=== PATIENT | male | born 1940 | race Caucasian/White ===

== ENCOUNTER 2017-02-13 12:54 | Observation (INO) | payer MEDICARE, MEDICAID ==
[2017-02-13] VITALS (9 sets, daily range): BP systolic 108–179; BP diastolic 63–96; PULSE 60–77; RESP 17–20; TEMP 97.3–98; O2SAT 95–99
[~2017-02-13] VITALS: Ht 182.9 cm; Wt 100.0 kg
[~2017-02-13 12:54] MED LIST: ASPI1TAB69 PO; ATOR20TA15 PO; BETH25TA2 PO; CLOP75TA PO; DORZ2SOL EACH EYE; FURO40TA PO; METO50TA PO; MULT1TAB84 PO; NITR0.4S SL; OMEP40CA2 PO; RANO500 PO; SYMB160A INH; TAMS0.4C4 PO; TIOT12.9 INH
[2017-02-13] MEDS ORDERED: SODIUM CHLORIDE 0.9% FLUSH 10 ML FLUSH IVF PRN (13:15)
[2017-02-13] MEDS ORDERED: ONDANSETRON HCL 4 MG/2 ML VIAL IV ONE (13:15)
[2017-02-13] MEDS ORDERED: LYRI50CA PO (13:17)
[2017-02-13] MEDS ORDERED: CLON0.2T PO (13:17)
--- NOTE | 2017-02-13 13:18 | PD ---
HPI Chief Complaint: Cardiac Complaint Time Seen by Provider: 13:03 Travel History International Travel<30 days: No Contact w/Intl Traveler<30days: No Traveled to known affect area: No History of Present Illness HPI This patient complains of chest pain. Location is [place]. Started late yesterday evening. Has waxed and waned throughout the night. Today he still hurting and so came in. Severity is moderate. No alleviating factors. No fever or shortness of breath or cough. Has history of cardiac stent. He took 3 sublingual nitros a couple hours ago. Patient had a stress test here at this hospital 8 months ago. PFSH Past Medical History Hx Anticoagulant Therapy: Yes (81 MG ASA ) Asthma: No Blood Disorders: No Anxiety: No Depression: No Heart Rhythm Problems: Yes Cancer: No Cardiac Catheterization: Yes Cardiovascular Problems: Yes (Pacemaker) High Cholesterol: Yes Chemotherapy: No Chest Pain: Yes Congestive Heart Failure: No COPD: Yes Cerebrovascular Accident: No Diabetes: No Diminished Hearing: No Endocrine: No GERD: Yes Glaucoma: No Genitourinary: Yes (PROSTATE INFECTION, YRS AGO HAD TURP) Headaches: Yes Hepatitis: No Hiatal Hernia: No Hypertension: Yes Immune Disorder: No Implanted Vascular Access Dvce: Yes Musculoskeletal: No Neurologic: Yes (ENVIRONMENTAL NEUROPATHY) Psychiatric: No Reproductive: Yes (LOW HORMONE LEVEL) Respiratory: Yes (COPD) Integumentary: No Pneumonia: Yes Sleep Apnea: Yes (HAS CPAP MACHINE) Thyroid Disease: No Past Surgical History Abdominal Surgery: Yes AICD: No Body Medical Devices: PACER Cardiac Surgery: Yes ([employer] PACEMAKER LEFT SIDE) Cholecystectomy: Yes Coronary Artery Bypass Graft: No Coronary Stent: Yes (2012) Eye Surgery: Yes (L EYE) Hysterectomy: Yes Joint Replacement: No Pacemaker: Yes Tonsillectomy: Yes Other Surgery: Yes (LEFT EYE LASER, LOGAN, CARDIAC STENT, PACER, PILONIDAL CYST ) Family History Family Myocardial Infarction: Yes Social History Alcohol Use: No Tobacco Use: No Substance Use: No Allergies-Medications (Allergen,Severity, Reaction): Coded Allergies: Contrast Media (Verified Allergy, Severe, TEMPERATURE RISE 103-104, ) Lactose (Verified Allergy, Intermediate, GI SX'S, 02/13/17) Citric Acid (Verified Adverse Reaction, Intermediate, STOMACH CRAMPS, DIARRHEA, 02/13/17) Codeine (Verified Adverse Reaction, Intermediate, GERD, STOMACH ACHE, 02/13) Uncoded Allergies: NA BENZOATE (Allergy, Intermediate, DIARRHEA, ABDOMINAL PAIN, 03/13/13) FOOD PRESERVATIVES (Adverse Reaction, Intermediate, DIARRHEA, ABD. PAIN, 03/12/13) Reported Meds & Prescriptions Reported Meds & Active Scripts Active Reported Lyrica (Pregabalin) 50 Mg Cap 50 Mg PO TID Clonidine (Clonidine HCl) 0.2 Mg Tab 0.2 Mg PO BID Dorzolamide Opth Drops (Dorzolamide HCl) 2% Soln 1 Drop EACH EYE TID Symbicort Inh (Budesonide/Formoterol Fumarate) 160-4.5 Mcg/Act Aero 2 Puff INH Q12HR Spiriva Respimat Inh (Tiotropium Inh) 2.5 Mcg/Act Aero 2 Puff INH DAILY 2.5 mcg = 1 inhalation Metoprolol Tartrate 50 Mg Tab 50 Mg PO BID Furosemide 40 Mg Tab 20 Mg PO DAILY Clopidogrel (Clopidogrel Bisulfate) 75 Mg Tab 75 Mg PO DAILY Nitrostat SL (Nitroglycerin) 0.4 Mg Subl 0.4 Mg SL DIRECTED PRN ONE TABLET UNDER THE TONGUE NEEDED FOR CHEST PAIN, MAY REPEAT EVERY FIVE MINUTES FOR A TOTAL OF 3 DOSES OR CALL 911 IF NO RELIEF Atorvastatin (Atorvastatin Calcium) 20 Mg Tab 40 Mg PO HS Aspirin 81 Mg Tabdr 81 Mg PO DAILY Review of Systems General / Constitutional: No: Fever Eyes: No: Visual changes HENT: Positive: Lightheadedness, No: Headaches Cardiovascular: Positive: Chest Pain or Discomfort Respiratory: No: Shortness of Breath Gastrointestinal: No: Abdominal Pain Genitourinary: No: Dysuria Musculoskeletal: No: Pain Skin: No Rash Neurologic: No: Weakness Psychiatric: No: Depression Endocrine: No: Polydipsia Hematologic/Lymphatic: No: Easy Bruising Physical Exam Narrative GENERAL: Well-nourished, well-developed patient in no apparent distress. SKIN: Focused skin assessment reveals no rash and nodules. Skin is Warm and dry. HEAD: Atraumatic. Normocephalic. EYES: Pupils equal and round. No scleral icterus. No injection or drainage. ENT: No nasal bleeding or discharge. Mucous membranes pink and moist. NECK: Trachea midline. No JVD. CARDIOVASCULAR: Regular rate and rhythm. No murmur appreciated. RESPIRATORY: No accessory muscle use. Clear to auscultation. Breath sounds equal bilaterally. GASTROINTESTINAL: Abdomen soft, non-tender, nondistended. Hepatic and splenic margins not palpable. MUSCULOSKELETAL: No obvious deformities. No clubbing. No cyanosis. Trace symmetric ankle edema. NEUROLOGICAL: Awake and alert. No obvious cranial nerve deficits. Motor grossly within normal limits. Stuttering speech. PSYCHIATRIC: Appropriate mood and affect; insight and judgment normal. Data Data Last Documented VS Vital Signs Date Time Temp Pulse Resp B/P Pulse Ox O2 Delivery O2 Flow Rate FiO2 02/13/17 14:51 60 17 108/63 99 Room Air 02/13/17 12:59 97.6 Orders Electrocardiogram (02/13/17 13:12) Basic Metabolic Panel (Bmp) (02/13/17 13:12) Ckmb (Isoenzyme) Profile (02/13/17 13:12) Complete Blood Count With Diff (02/13/17 13:12) Prothrombin Time / Inr (Pt) (02/13/17 13:12) Act Partial Throm Time (Ptt) (02/13/17 13:12) Troponin I (02/13/17 13:12) Chest, Single Ap (02/13/17 13:12) Ecg Monitoring (02/13/17 13:12) Iv Access Insert/Monitor (02/13/17 13:12) Oximetry (02/13/17 13:12) Sodium Chloride 0.9% Flush (Ns Flush) (02/13/17 13:15) Ondansetron Inj (Zofran Inj) (02/13/17 13:15) Labs Laboratory Tests Test 02/13/17 13:05 White Blood Count 6.3 TH/MM3 Red Blood Count 5.27 MIL/MM3 Hemoglobin 14.6 GM/DL Hematocrit 44.1 % Mean Corpuscular Volume 83.5 FL Mean Corpuscular Hemoglobin 27.7 PG Mean Corpuscular Hemoglobin 33.2 % Concent Red Cell Distribution Width 14.5 % Platelet Count 209 TH/MM3 Mean Platelet Volume 7.8 FL Neutrophils (%) (Auto) 65.8 % Lymphocytes (%) (Auto) 22.8 % Monocytes (%) (Auto) 9.0 % Eosinophils (%) (Auto) 2.2 % Basophils (%) (Auto) 0.2 % Neutrophils # (Auto) 4.1 TH/MM3 Lymphocytes # (Auto) 1.4 TH/MM3 Monocytes # (Auto) 0.6 TH/MM3 Eosinophils # (Auto) 0.1 TH/MM3 Basophils # (Auto) 0.0 TH/MM3 CBC Comment DIFF FINAL Differential Comment Prothrombin Time 10.4 SEC Prothromb Time International 0.9 RATIO Ratio Activated Partial 25.4 SEC Thromboplast Time Sodium Level 137 MEQ/L Potassium Level 3.9 MEQ/L Chloride Level 103 MEQ/L Carbon Dioxide Level 25.9 MEQ/L Anion Gap 8 MEQ/L Blood Urea Nitrogen 15 MG/DL Creatinine 1.18 MG/DL Estimat Glomerular Filtration 60 ML/MIN Rate Random Glucose 87 MG/DL Calcium Level 8.6 MG/DL Total Creatine Kinase 60 U/L Troponin I LESS THAN 0.02 NG/ML MDM Medical Decision Making Medical Screen Exam Complete: Yes Emergency Medical Condition: Yes Medical Record Reviewed: Yes Differential Diagnosis Differential diagnosis includes TN, angina, pericarditis, pleurisy, GERD, anxiety. Narrative Course I have reviewed the patient's electronic medical record. Reviewed his history and physical I stress test from 8 months ago IV placed I reviewed the EKG which shows paced rhythm without ST elevation I reviewed the chest x-ray shows atelectasis but no important findings Extended cardiac monitoring shows paced rhythm in the 60s CBC is normal Metabolic profile is normal CK is normal Troponin is normal Coagulation studies are normal He had aspirin prior to arrival Patient is currently pain-free. He's had normal vital signs the last 2+ hours here. He has known CAD but his ER workup is currently negative. He will be a 23 hour observation in the chest pain center to rule out cardiac cause of his symptoms. Diagnosis Primary Impression: Chest pain Qualified Code: R07.9 - Chest pain, unspecified type Additional Impression: CAD (coronary artery disease) Qualified Code: I25.10 - Coronary artery disease due to calcified coronary lesion Admitting Information Admitting Physician Requests: Observation Walker Diaz MD Feb 13, 2017 13:18
[2017-02-13 13:44] LABS: AUTOMATED NEUTROPHIL # 4.1 TH/MM3 (1.8-7.7); BASOPHIL % 0.2 % (0.0-2.0); EOSINOPHIL # 0.1 TH/MM3 (0-0.4); EOSINOPHIL % 2.2 % (0.0-4.0); HEMATOCRIT 44.1 % (39.0-51.0); HEMO FLAGS DIFF FINAL; LYMPH % 22.8 % (9.0-44.0); LYMPHOCYTE # 1.4 TH/MM3 (1.0-4.8); MEAN CELL VOLUME 83.5 FL (80.0-100.0); MEAN CORPUSCULAR HEMOGLOBIN 27.7 PG (27.0-34.0); MEAN CORPUSCULAR HGB CONC 33.2 % (32.0-36.0); NEUT % 65.8 % (16.0-70.0); PLATELET COUNT 209 TH/MM3 (150-450); RED BLOOD COUNT 5.27 MIL/MM3 (4.50-5.90); RED CELL DISTRIBUTION WIDTH 14.5 % (11.6-17.2); WHITE BLOOD COUNT 6.3 TH/MM3 (4.0-11.0)
[2017-02-13 13:56] LABS: ANION GAP 8 MEQ/L (5-15); BICARBONATE 25.9 MEQ/L (21.0-32.0); BLOOD UREA NITROGEN 15 MG/DL (7-18); CHLORIDE 103 MEQ/L (98-107); GLOMERULAR FILTRATION RATE 60 ML/MIN (>89); POTASSIUM 3.9 MEQ/L (3.5-5.1); SODIUM (NA) 137 MEQ/L (136-145)
[2017-02-13 13:59] LABS: APTT (PATIENT) 25.4 SEC (24.3-30.1); INTERNATIONAL NORMALIZED RATIO 0.9 RATIO; PROTHROMBIN TIME - PATIENT 10.4 SEC (9.8-11.6)
[2017-02-13 14:06] LABS: CREATINE KINASE 60 U/L (39-308)
--- NOTE | 2017-02-13 15:07 | RADRPT ---
EXAM DATE/TIME: 02/13/2017 13:49 [facility] COMPARISON: CHEST SINGLE AP, June 16, 2016, 16:26. INDICATIONS : Chest pain. MEDICAL HISTORY : Hypercholesterolemia. Chronic obstructive pulmonary disease. Gastroesophageal reflux disease. Hyp ertension. SURGICAL HISTORY : Pacemaker. Cholecystectomy. Coronary artery stent. Left eye surgery. ENCOUNTER: Subsequent ACUITY: 1 day PAIN SCORE: 5/10 LOCATION: Bilateral chest FINDINGS: Left subclavian pacer wires are present with tips in the right atrium and right ventricle. There is v ague haziness left lung base possibly technical. There are atherosclerotic calcifications of the aort a due to chronic atherosclerotic disease. Heart and mediastinum are unremarkable for technique. CONCLUSION: Probable atelectasis in both lung bases related to poor inspiratory effort. Anthony Blum MD on February 13, 2017 at 15:04 Board Certified Radiologist. This report was verified electronically.
[2017-02-13] MEDS ORDERED: RESP: ALBUTEROL 2.5 MG/IPRATROPIUM 0.5 MG NEB (PRN) INH (16:30)
[2017-02-13] MEDS ORDERED: SODIUM CHLORIDE 0.9% FLUSH 5 ML FLUSH IVF PRN (16:30)
[2017-02-13] MEDS ORDERED: ONDANSETRON HCL 4 MG/2 ML VIAL IV PRN (16:30)
[2017-02-13] MEDS ORDERED: ALPRAZolam 0.25 MG TAB PO PRN (16:30)
[2017-02-13] MEDS ORDERED: ACETAMINOPHEN/HYDROcodone 325 MG/7.5 MG TAB PO PRN (16:30)
[2017-02-13] MEDS ORDERED: ACETAMINOPHEN 500 MG CPLT PO PRN (16:30)
--- NOTE | 2017-02-13 16:33 | HHI.HP ---
HPI Primary Care Physician Non-Staff Chief Complaint Chest pain History of Present Illness This is a 76-year-old male with history of CAD with a stent of left circumflex in 2013 that presents with a complaint of chest discomfort. Patient states that he's been having intermittent central chest pressure for the past week. It does not radiate. It does cause shortness of breath, nausea, and diaphoresis. Nothing in particular brings on the discomfort but states it lasts anywhere from 1-2 hours. He became concerned this morning when the discomfort was more intense. He took sublingual nitroglycerin X 3 which resolved his symptoms. Patient follows Dr. Mart and last saw him about a month ago. His last stress test was June 2016 at this hospital. He had a Lexiscan was nonischemic. His last cardiac catheterization was August 17, 2015 revealing moderate nonobstructive disease in his stent to the left circumflex was patent. Patient also is complaining of a pain across her shoulders and his back. He states is worsened with movement. He believes both arms have felt a little numb. No weakness in the arms denies any recent trauma. Also note there is a contrast allergy on the patient's record however the patient denies having a contrast allergy. Review of Systems General: Patient denies fevers, chills recent, and recent travel HEENT: Patient denies headache, sore throat, difficulty swallowing. Cardiovascular: Has the chest discomfort as mentioned above. Denies sensation of heart beating rapidly or irregularly. No syncope. There has been diaphoresis. Respiratory: He has been short of breath. Denies inspirational chest discomfort. Denies coughing wheezing or hemoptysis. GI: Occasional nausea. Patient denies vomiting, diarrhea, abdominal pain, bloody stools. Musculoskeletal: Patient denies joint pain or edema. Denies calf pain or edema. Pain in his upper back across the shoulders is worsened with movement. Neurovascular: [place] of a numbness in both arms. Patient denies tingling, weakness in extremities. Denies headache. Endocrine: Denies polyuria and polydipsia. Hematologic: Denies easy bruising. Skin: Denies rash or itching. Past Family Social History Allergies: Coded Allergies: Contrast Media (Verified Allergy, Severe, TEMPERATURE RISE 103-104, ) Lactose (Verified Allergy, Intermediate, GI SX'S, 02/13/17) Citric Acid (Verified Adverse Reaction, Intermediate, STOMACH CRAMPS, DIARRHEA, 02/13/17) Codeine (Verified Adverse Reaction, Intermediate, GERD, STOMACH ACHE, 02/13) Uncoded Allergies: NA BENZOATE (Allergy, Intermediate, DIARRHEA, ABDOMINAL PAIN, 03/13/13) FOOD PRESERVATIVES (Adverse Reaction, Intermediate, DIARRHEA, ABD. PAIN, 03/12/13) Past Medical History CAD with stenting of the left circumflex in 2013. Atrial paced. Neuropathy. Hyperlipidemia. Hypertension. Denies diabetes. Past Surgical History Patient has had several heart catheterizations with a stent placed in 2013. Last calf was in August 2015 without intervention. He has had a pacemaker that was replaced in 2012. Cholecystectomy and tonsillectomy. Reported Medications Reported Meds & Active Scripts Active Reported Lyrica (Pregabalin) 50 Mg Cap 50 Mg PO TID Clonidine (Clonidine HCl) 0.2 Mg Tab 0.2 Mg PO BID Dorzolamide Opth Drops (Dorzolamide HCl) 2% Soln 1 Drop EACH EYE TID Symbicort Inh (Budesonide/Formoterol Fumarate) 160-4.5 Mcg/Act Aero 2 Puff INH Q12HR Spiriva Respimat Inh (Tiotropium Inh) 2.5 Mcg/Act Aero 2 Puff INH DAILY 2.5 mcg = 1 inhalation Metoprolol Tartrate 50 Mg Tab 50 Mg PO BID Furosemide 40 Mg Tab 20 Mg PO DAILY Clopidogrel (Clopidogrel Bisulfate) 75 Mg Tab 75 Mg PO DAILY Nitrostat SL (Nitroglycerin) 0.4 Mg Subl 0.4 Mg SL DIRECTED PRN ONE TABLET UNDER THE TONGUE NEEDED FOR CHEST PAIN, MAY REPEAT EVERY FIVE MINUTES FOR A TOTAL OF 3 DOSES OR CALL 911 IF NO RELIEF Atorvastatin (Atorvastatin Calcium) 20 Mg Tab 40 Mg PO HS Aspirin 81 Mg Tabdr 81 Mg PO DAILY Active Ordered Medications Current Medications Medications (Trade) Dose Ordered Sig/Prisca Route Start Time Stop Time Status Last Admin (NS Flush) 2 ml UNSCH PRN IVF 02/13/17 13:15 (Lipitor) 40 mg HS PO 02/13/17 21:00 UNV (Catapres) 0.2 mg BID PO 02/13/17 21:00 UNV (Plavix) 75 mg DAILY PO 02/14/17 09:00 UNV (Lasix) 20 mg DAILY PO 02/14/17 09:00 UNV (Lopressor) 50 mg BID PO 02/13/17 21:00 UNV (Lyrica) 50 mg TID PO 02/13/17 18:00 UNV Family History There is family history of CAD. Social History Patient is a lifetime nonsmoker. Denies alcohol or illicit drugs. Lives with his . Physical Exam Vital Signs Vital Signs Date Time Temp Pulse Resp B/P Pulse Ox O2 Delivery O2 Flow Rate FiO2 02/13/17 16:00 61 17 132/76 98 Room Air 02/13/17 14:51 60 17 108/63 99 Room Air 02/13/17 12:59 97.6 62 18 141/83 97 Physical Exam GENERAL: This is a well-nourished, well-developed patient, in no apparent distress. Patient speaks in clear complete sentences. Patient is pleasant. HEENT: Head is atraumatic and normocephalic. Neck is supple without lymphadenopathy and trachea is midline. No JVD or carotid bruits. CARDIOVASCULAR: Regular rate and rhythm without murmurs, gallops, or rubs. RESPIRATORY: Clear to auscultation. Breath sounds equal bilaterally. No wheezes , rales, or rhonchi. Chest wall is nontender. No use of accessory muscles. GASTROINTESTINAL: Abdomen is nontender, nondistended. Abdomen soft. No obvious pulsatile mass or bruit. No CVA tenderness. Strong femoral pulses bilaterally. Normal bowel sounds in all quadrants. MUSCULOSKELETAL: There is discomfort with flexion and extension of the cervical spine. There is some tenderness in palpating along the paraspinal muscles of the cervical spine. Patient is moving upper and lower extremities freely. No calf tenderness or edema, no Homans sign. Strong dairy powder mixer operator strength bilaterally. Strong pulses in upper and lower extremities. NEUROLOGICAL: Patient is alert and oriented. Cranial nerves 2-12 are grossly intact. No focal deficits and speech is clear. Strong dairy powder mixer operator strength bilaterally. SKIN: No rash and turgor is normal. Laboratory Laboratory Tests Test 02/13/17 13:05 White Blood Count 6.3 Red Blood Count 5.27 Hemoglobin 14.6 Hematocrit 44.1 Mean Corpuscular Volume 83.5 Mean Corpuscular Hemoglobin 27.7 Mean Corpuscular Hemoglobin 33.2 Concent Red Cell Distribution Width 14.5 Platelet Count 209 Mean Platelet Volume 7.8 Neutrophils (%) (Auto) 65.8 Lymphocytes (%) (Auto) 22.8 Monocytes (%) (Auto) 9.0 Eosinophils (%) (Auto) 2.2 Basophils (%) (Auto) 0.2 Neutrophils # (Auto) 4.1 Lymphocytes # (Auto) 1.4 Monocytes # (Auto) 0.6 Eosinophils # (Auto) 0.1 Basophils # (Auto) 0.0 CBC Comment DIFF FINAL Differential Comment Prothrombin Time 10.4 Prothromb Time International 0.9 Ratio Activated Partial 25.4 Thromboplast Time Sodium Level 137 Potassium Level 3.9 Chloride Level 103 Carbon Dioxide Level 25.9 Anion Gap 8 Blood Urea Nitrogen 15 Creatinine 1.18 Estimat Glomerular Filtration 60 Rate Random Glucose 87 Calcium Level 8.6 Total Creatine Kinase 60 Troponin I LESS THAN 0.02 Result Diagram: 02/13/17 1305 02/13/17 1305 Imaging Last 48 hours Impressions Chest X-Ray 02/13/17 1312 Signed Impressions: Service Date/Time: Monday, February 13, 2017 13:49 - CONCLUSION: Probable atelectasis in both lung bases related to poor inspiratory effort. Anthony Blum MD Course Initial EKG is atrial paced. Rate is 69. No significant ST segment depressions or elevations. Assessment and Plan Assessment and Plan * Chest pain: Patient does have history of coronary disease with stenting of the left circumflex in 2013. Patient will continue to have serial cardiac enzymes and EKGs for ruling out purposes. He will be seen by Dr. Chilo Joseph of cardiology in the chest pain center in the morning and likely proceed with a Lexiscan and if he rules out. Also discussed this patient with his compensator Dr. Mart who is agreed with the plan. Patient be discharged home if stress test is nonischemic. We will notify Dr. Mart of his stress test is abnormal. * Neck pain: Patient is complaining of pain in his neck and across the shoulders and his back. Complaining of a numbness in both arms. We will get a CT of the C-spine. * Hypertension: Continue current medication. * Hyperlipidemia: Continue current medication. * Neuropathy: Continue current medication. * CAD: We'll reassess with stress testing. Patient is stable at this time. He is agreeable to this plan. Vivek Yadav Feb 13, 2017 16:33
[2017-02-13 17:47] LABS: CREATINE KINASE 50 U/L (39-308)
[2017-02-13] MEDS: PREGABALIN 25 MG CAP PO SCH (17:58)
--- NOTE | 2017-02-13 20:28 | RADRPT ---
EXAM DATE/TIME: 02/13/2017 19:55 [facility] COMPARISON: CT CERVICAL SPINE W/O CONTRAST, December 01, 2013, 1:08. INDICATIONS : Neck pain and stiffness. No injury. RADIATION DOSE: 34.23 CTDIvol (mGy) MEDICAL HISTORY : None SURGICAL HISTORY : None. ENCOUNTER: Initial ACUITY: 3 days PAIN SCALE: 6/10 LOCATION: neck TECHNIQUE: Volumetric scanning of the cervical spine was performed. Multiplanar reconstructions in the sagittal, coronal and oblique axial planes were performed. Using automated exposure control and adjustment o f the mA and/or kV according to patient size, radiation dose was kept as low as reasonably achievable to obtain optimal diagnostic quality images. DICOM format image data is available electronically f or review and comparison. FINDINGS: VERTEBRAE: Normal vertebral body height. ALIGNMENT: No evidence of subluxation. C2-C3: There is a mild broad-based disc bulge. No abutment of the cord or central canal stenosis. Mild narro wing of the lateral recesses bilaterally. Bony uncovertebral hypertrophy causes mild right and modera te left neural foraminal narrowing. Appearance is stable from the prior study. C3-C4: A broad-based disc bulge eccentric to the left without abutment of the cord or central canal stenosis . Narrowing of the lateral recesses bilaterally but more pronounced on the left. Bony uncovertebral h ypertrophy causing severe left and moderate right neural foraminal narrowing. Appearance is stable. C4-C5: A broad-based disc osteophyte complex flattens the ventral portion of the cord. Narrowing of the late ral recesses bilaterally. Mild narrowing of the central canal. Bony uncovertebral hypertrophy generat es pronounced bilateral neural foraminal narrowing. Appearance is stable. C5-C6: A broad-based disc osteophyte complex slightly eccentric to the left just touches the ventral portion of the cord. Narrowing of the lateral recesses bilaterally. Bony uncovertebral hypertrophy causes mo derate bilateral neural foraminal narrowing. Appearance is stable. C6-C7: The bony spinal canal is normal in size. No evidence of disc bulge or herniation. The neural forami na are bilaterally patent. C7-T1: The bony spinal canal is normal in size. No evidence of disc bulge or herniation. The neural forami na are bilaterally patent. CONCLUSION: 1. Calcified plaque involving the carotid arteries bilaterally. 2. Multilevel degenerative changes of the cervical spine. Areas of narrowing of the central canal as well as neural foraminal narrowing. Overall the appearance is stable from the prior study. Vu Al Jr., MD on February 13, 2017 at 20:22 Board Certified Radiologist. This report was verified electronically.
[2017-02-13 20:30] LABS: CREATINE KINASE 51 U/L (39-308)
[2017-02-13] MEDS ORDERED: ATORVASTATIN 40 MG TAB PO SCH (21:00)
[2017-02-13] MEDS: SODIUM CHLORIDE 0.9% FLUSH 5 ML FLUSH IVF SCH (21:00)
[2017-02-13] MEDS: METOPROLOL TARTRATE 50 MG TAB PO SCH (22:33)
[2017-02-13] MEDS: cloNIDine HCL 0.2 MG TAB PO SCH (22:33)
[2017-02-14] VITALS (7 sets, daily range): BP systolic 108–188; BP diastolic 71–104; PULSE 60–67; RESP 18; TEMP 97.7–98.4; O2SAT 94–99
[2017-02-14] MEDS: METOPROLOL TARTRATE 50 MG TAB PO SCH (08:11)
[2017-02-14] MEDS: PREGABALIN 25 MG CAP PO SCH (08:11)
[2017-02-14] MEDS: cloNIDine HCL 0.2 MG TAB PO SCH (08:11)
[2017-02-14] MEDS: SODIUM CHLORIDE 0.9% FLUSH 5 ML FLUSH IVF SCH (08:11)
[2017-02-14] MEDS ORDERED: FUROSEMIDE 20 MG TAB PO SCH (09:00)
[2017-02-14] MEDS ORDERED: ASPIRIN 325 MG TAB PO SCH (09:00)
[2017-02-14] MEDS ORDERED: CLOPIDOGREL 75 MG TAB PO SCH (09:00)
[2017-02-14] MEDS ORDERED: amLODIPine BESYLATE 5 MG TAB PO SCH (09:00)
[2017-02-14] MEDS ORDERED: REGADENOSON INJ 0.4 MG/5 ML SYR ONE (10:08)
--- NOTE | 2017-02-14 11:32 | RADRPT ---
EXAM DATE/TIME: 02/14/2017 09:21 [facility] COMPARISON: MYOCARDIAL PERF PHARM SPECT, GATED W/EF, June 17, 2016, 11:14. INDICATIONS : Mid chest pain with shortness of breath and nausea for one week. Angina. DOSE: 35.0 mCi Tc99m Myoview at stress. 11.0 mCi Tc99m Myoview at rest. 0.4 mg Lexiscan STRESS SYMPTOMS: Chest burning sensation and short of breath. EJECTION FRACTION: 57% MEDICAL HISTORY : Cardiovascular disease. Hypertension. SURGICAL HISTORY : Coronary artery stent. Tonsillectomy. Pacemaker. ENCOUNTER: Initial ACUITY: 1 week PAIN SCALE: 7/10 LOCATION: Midsternal chest TECHNIQUE: The patient underwent pharmacologic stress with infusion of prescribed dose. Continuous ECG tracing was monitored during stress. Gated SPECT imaging was performed after stress and conventional SPECT i maging was performed at rest. The examination was performed on a SPECT/CT scanner, both attenuation and non-corrected datasets were reviewed. FINDINGS: DISTRIBUTION: The maximum perfused segment at stress is in the inferolateral wall. PERFUSION STUDY: The pattern of perfusion at stress is within normal limits. GATED STUDY: There is intact wall motion and thickening without hypokinetic or dyskinetic segments. CONCLUSION: No reversible defects observed to suggest acute ischemia. RISK CATEGORY: Low Vu Al Jr., MD on February 14, 2017 at 11:28 Board Certified Radiologist. This report was verified electronically.
[2017-02-14] MEDS ORDERED: AMLO5TAB2 PO (11:36)
--- NOTE | 2017-02-14 12:02 | HHI.DCPOC ---
Discharge Care Plan Diagnosis: (1) Atypical chest pain (2) Hx of coronary artery disease (3) Hypertension Goals to Promote Your Health * To prevent worsening of your condition and complications * To maintain your health at the optimal level Directions to Meet Your Goals Take your medications as prescribed Follow your dietary instruction Follow activity as directed Keep your appointments as scheduled Take your immunizations and boosters as scheduled If your symptoms worsen call your PCP, if no PCP go to Urgent Care Center or Emergency Room Smoking is Dangerous to Your Health. Avoid second hand smoke Call the 24-hour hour crisis hotline for domestic abuse at Tish Espino Feb 14, 2017 12:02
--- NOTE | 2017-02-15 13:25 | EKG ---
Date Performed: 02/13/2017 Time Performed: 19:44:19 PTAGE: 76 years EKG: ELECTRONIC ATRIAL PACEMAKER ABNORMAL RHYTHM ECG PREVIOUS TRACING : 02/13/2017 16.59 Since previous tracing, no significant change noted DOCTOR: Chilo Joseph Interpretating Date/Time 02/15/2017 13:21:28
--- NOTE | 2017-02-15 13:25 | EKG ---
Date Performed: 02/13/2017 Time Performed: 12:59:45 PTAGE: 76 years EKG: ELECTRONIC ATRIAL PACEMAKER ABNORMAL RHYTHM ECG INTERPRETATION BASED ON A DEFAULT AGE OF 40 YEARS PREVIOUS TRACING : 06/16/2016 22.55 Since previous tracing, no significant change noted DOCTOR: Chilo Joseph Interpretating Date/Time 02/15/2017 13:22:40
--- NOTE | 2017-02-15 13:25 | TR ---
Date Performed: 02/14/2017 Time Performed: 09:59:49 DOCTOR: Chilo Joseph DRUG LIST: CLINICAL HISTORY: CHEST PAIN CHEST PAIN REASON FOR TEST: REASON FOR ENDING: OBSERVATION: CONCLUSION: Lexiscan stress test was performed under standard four minute protocol. Radionuclid e was injected one minute prior to ending the test. No electrocardiographic abormalities were present to suggest ischemia. Nuclear imaging and interpretation are pending. COMMENTS:
--- NOTE | 2017-02-15 13:25 | EKG ---
Date Performed: 02/13/2017 Time Performed: 16:59:04 PTAGE: 76 years EKG: ELECTRONIC ATRIAL PACEMAKER ABNORMAL RHYTHM ECG PREVIOUS TRACING : 02/13/2017 12.59 Since previous tracing, no significant change noted DOCTOR: Chilo Joseph Interpretating Date/Time 02/15/2017 13:21:55
== END 2017-02-14 13:12 | disposition home or self-care (01) ==
LOC: NEPE 12:54 → NEDA 15:28 → NEPGCP 17:55
PROVIDERS: ADMIT Internal Medicine Interventional Cardiology; ATTEND Internal Medicine Interventional Cardiology
DX: R07.89 Other chest pain (principal); I10 Essential (primary) hypertension; I25.10 Atherosclerotic heart disease of native coronary artery without angina pectoris; E78.5 Hyperlipidemia, unspecified; G62.9 Polyneuropathy, unspecified; M54.2 Cervicalgia; J44.9 Chronic obstructive pulmonary disease, unspecified; R20.0 Anesthesia of skin; K21.9 Gastro-esophageal reflux disease without esophagitis; Z79.899 Other long term (current) drug therapy; Z79.82 Long term (current) use of aspirin; Z95.0 Presence of cardiac pacemaker; Z98.61 Coronary angioplasty status; Z95.1 Presence of aortocoronary bypass graft
CPT/HCPCS: 71010; 72125; 78452; 80048; 82550; 84484; 85025; 85610; 85730; 93005; 93017; 96374; 99285; A9502; G0378; J2405; J2785

== ENCOUNTER 2017-08-10 10:34 | Emergency (ER) | payer MEDICARE, MEDICAID ==
[~2017-08-10] VITALS: Ht 182.9 cm; Wt 100.5 kg
[~2017-08-10 10:34] MED LIST changes: +AMLO5TAB2 PO; -ASPI1TAB69 PO; +ASPI81CH6 CHEW; -ATOR20TA15 PO; -BETH25TA2 PO; +CENTCHW3 PO; +FURO20TA PO; -FURO40TA PO; +LYRI50CA PO; -MULT1TAB84 PO; -OMEP40CA2 PO; -RANO500 PO; -TAMS0.4C4 PO; +TEST1INJ3 IM; +VENTAER INH
[2017-08-10 10:35] VITALS: BP 196/94; PULSE 90; RESP 18; TEMP 97.9; O2SAT 98
[2017-08-10] MEDS ORDERED: LOSA50TA PO (11:12)
[2017-08-10] MEDS ORDERED: LATA0.002 EACH EYE (11:12)
[2017-08-10] MEDS ORDERED: ROSU1TAB10 PO (11:12)
[2017-08-10] MEDS ORDERED: DORZ2SOL EACH EYE (11:12)
[2017-08-10] MEDS ORDERED: CELE1CAP8 PO (11:12)
[2017-08-10 11:14] VITALS: BP 168/90; PULSE 61; RESP 22; O2SAT 100
[2017-08-10] MEDS ORDERED: ONDANSETRON HCL 4 MG/2 ML VIAL IVP ONE (11:15)
[2017-08-10] MEDS ORDERED: SODIUM CHLORIDE 0.9% FLUSH 10 ML FLUSH IV FLUSH PRN (11:15)
--- NOTE | 2017-08-10 11:15 | PD ---
HPI Chief Complaint: Abdominal Pain Time Seen by Provider: 11:05 Travel History International Travel<30 days: No Contact w/Intl Traveler<30days: No Traveled to known affect area: No History of Present Illness HPI 76-year-old male was sent here by his primary care physician for evaluation of abnormal CT scanning results. The patient reports over the past month he has been experiencing crampy periumbilical abdominal pain as well as constipation. Symptoms are constant but worse when eating. He endorses associated nausea, dizziness, sweats. Denies chest pain, shortness of breath, cough or congestion , dysuria, fevers or chills. He reports that he saw his primary care physician and was sent for CT of the abdomen and pelvis 2 days ago at [place]. He reports that he was told that there was a lack of blood flow to his bowels and he was sent here for further evaluation. He has no other complaints at this time. PFSH Past Medical History Hx Anticoagulant Therapy: Yes (81 MG ASA ) Asthma: No Blood Disorders: No Anxiety: No Depression: No Heart Rhythm Problems: Yes Cancer: No Cardiac Catheterization: Yes (w/ stents) Cardiovascular Problems: Yes (PACEMAKER, STENTS) High Cholesterol: Yes Chemotherapy: No Chest Pain: Yes Congestive Heart Failure: No COPD: Yes Cerebrovascular Accident: No Coronary Artery Disease: Yes Diabetes: No Diminished Hearing: No Endocrine: No GERD: Yes Glaucoma: No Genitourinary: Yes (PROSTATE INFECTION, YRS AGO HAD TURP) Headaches: Yes Hepatitis: No Hiatal Hernia: No Hypertension: Yes Immune Disorder: No Implanted Vascular Access Dvce: Yes Musculoskeletal: No Neurologic: Yes (ENVIRONMENTAL NEUROPATHY) Psychiatric: No Reproductive: Yes (LOW HORMONE LEVEL) Respiratory: Yes (COPD) Integumentary: No Pneumonia: Yes Sleep Apnea: Yes (HAS CPAP MACHINE) Thyroid Disease: No ?: Not Past Surgical History Abdominal Surgery: Yes AICD: No Body Medical Devices: PACER Cardiac Surgery: Yes ([employer] PACEMAKER LEFT SIDE) Cholecystectomy: Yes Coronary Artery Bypass Graft: No Coronary Stent: Yes (2012) Eye Surgery: Yes (L EYE) Hysterectomy: Yes Joint Replacement: No Pacemaker: Yes Tonsillectomy: Yes Other Surgery: Yes (LEFT EYE LASER, LOGAN, CARDIAC STENT, PACER, PILONIDAL CYST ) Family History Family Myocardial Infarction: Yes Social History Alcohol Use: No Tobacco Use: No Substance Use: No Allergies-Medications (Allergen,Severity, Reaction): Coded Allergies: citric acid (Verified Allergy, Severe, Nausea/Vomiting, 08/10/17) codeine (Verified Allergy, Severe, Nausea/Vomiting, 08/10/17) sodium benzoate (Verified Allergy, Severe, Diarrhea, 08/10/17) Reported Meds & Prescriptions Reported Meds & Active Scripts Active Magnesium Citrate Liq (Magnesium Citrate) 300 Ml Liq 300 Ml PO ONCE Colace (Docusate Sodium) 100 Mg Capsule 1 Tab PO TID 10 Days Reported Celecoxib 200 Mg Cap 200 Mg PO DAILY Dorzolamide Opth Drops (Dorzolamide HCl) 2% Soln 1 Drop EACH EYE BID Latanoprost Opth Drops (Latanoprost) 0.005% Drops 1 Drop EACH EYE HS Refrigerate until opened. Losartan (Losartan Potassium) 50 Mg Tab 50 Mg PO DAILY Rosuvastatin (Rosuvastatin Calcium) 40 Mg Tab 40 Mg PO DAILY Aspirin Low Dose (Aspirin) 81 Mg Chew 81 Mg CHEW DAILY Lyrica (Pregabalin) 50 Mg Cap 50 Mg PO TID Symbicort Inh (Budesonide/Formoterol Fumarate) 160-4.5 Mcg/Act Aero 2 Puff INH Q12HR Spiriva Respimat Inh (Tiotropium Inh) 2.5 Mcg/Act Aero 2 Puff INH DAILY 2.5 mcg = 1 inhalation Metoprolol Tartrate 50 Mg Tab 50 Mg PO BID Nitrostat SL (Nitroglycerin) 0.4 Mg Subl 0.4 Mg SL DIRECTED PRN ONE TABLET UNDER THE TONGUE NEEDED FOR CHEST PAIN, MAY REPEAT EVERY FIVE MINUTES FOR A TOTAL OF 3 DOSES OR CALL 911 IF NO RELIEF Review of Systems Except as stated in HPI: all other systems reviewed are Neg Physical Exam Narrative GENERAL: Well-nourished well-nourished male in no acute distress SKIN: Warm and dry. HEAD: Atraumatic. Normocephalic. EYES: Pupils equal and round. No scleral icterus. No injection or drainage. ENT: No nasal bleeding or discharge. Mucous membranes pink and moist. NECK: Trachea midline. No JVD. CARDIOVASCULAR: Regular rate and rhythm. No murmur appreciated. RESPIRATORY: No accessory muscle use. Clear to auscultation. Breath sounds equal bilaterally. GASTROINTESTINAL: Abdomen soft, mild generalized tenderness to palpation without guarding. MUSCULOSKELETAL: No obvious deformities. No clubbing. No cyanosis. No edema. NEUROLOGICAL: Awake and alert. No obvious cranial nerve deficits. Motor grossly within normal limits. Normal speech. PSYCHIATRIC: Appropriate mood and affect; insight and judgment normal. Data Data Last Documented VS Vital Signs Date Time Temp Pulse Resp B/P (MAP) Pulse Ox O2 Delivery O2 Flow Rate FiO2 08/10/17 11:14 61 22 168/90 (116) 100 Room Air 08/10/17 10:35 97.9 Orders Orders Complete Blood Count With Diff (08/10/17 11:12) Comprehensive Metabolic Panel (08/10/17 11:12) Lipase (08/10/17 11:12) Lactic Acid (08/10/17 11:12) Prothrombin Time / Inr (Pt) (08/10/17 11:12) Act Partial Throm Time (Ptt) (08/10/17 11:12) Urinalysis - C+S If Indicated (08/10/17 11:12) Iv Access Insert/Monitor (08/10/17 11:12) Ecg Monitoring (08/10/17 11:12) Oximetry (08/10/17 11:12) Ondansetron Inj (Zofran Inj) (08/10/17 11:15) Sodium Chloride 0.9% Flush (Ns Flush) (08/10/17 11:15) Electrocardiogram (08/10/17 11:12) Troponin I (08/10/17 11:12) Creatine Kinase (Cpk) (08/10/17 11:12) Ct Abd/Pel W Iv Contrast(Rout) (08/10/17 11:36) Dicyclomine Inj (Bentyl Inj) (08/10/17 11:45) Metoclopramide Inj (Reglan Inj) (08/10/17 13:15) Iohexol 350 Inj (Omnipaque 350 Inj) (08/10/17 13:16) Ed Discharge Order (08/10/17 13:39) Labs Laboratory Tests Test 08/10/17 11:20 08/10/17 11:34 White Blood Count 7.2 TH/MM3 Red Blood Count 4.82 MIL/MM3 Hemoglobin 13.9 GM/DL Hematocrit 41.5 % Mean Corpuscular Volume 86.2 FL Mean Corpuscular Hemoglobin 28.9 PG Mean Corpuscular Hemoglobin Concent 33.6 % Red Cell Distribution Width 13.1 % Platelet Count 229 TH/MM3 Mean Platelet Volume 7.6 FL Neutrophils (%) (Auto) 70.2 % Lymphocytes (%) (Auto) 19.0 % Monocytes (%) (Auto) 9.4 % Eosinophils (%) (Auto) 1.2 % Basophils (%) (Auto) 0.2 % Neutrophils # (Auto) 5.1 TH/MM3 Lymphocytes # (Auto) 1.4 TH/MM3 Monocytes # (Auto) 0.7 TH/MM3 Eosinophils # (Auto) 0.1 TH/MM3 Basophils # (Auto) 0.0 TH/MM3 CBC Comment DIFF FINAL Differential Comment Prothrombin Time 10.3 SEC Prothromb Time International Ratio 1.0 RATIO Activated Partial Thromboplast Time 25.8 SEC Blood Urea Nitrogen 17 MG/DL Creatinine 0.99 MG/DL Random Glucose 89 MG/DL Total Protein 7.5 GM/DL Albumin 3.8 GM/DL Calcium Level 8.6 MG/DL Alkaline Phosphatase 111 U/L Aspartate Amino Transf (AST/SGOT) 20 U/L Alanine Aminotransferase (ALT/SGPT) 23 U/L Total Bilirubin 0.7 MG/DL Sodium Level 141 MEQ/L Potassium Level 4.1 MEQ/L Chloride Level 106 MEQ/L Carbon Dioxide Level 30.1 MEQ/L Anion Gap 5 MEQ/L Estimat Glomerular Filtration Rate 74 ML/MIN Lactic Acid Level 1.0 mmol/L Total Creatine Kinase 74 U/L Troponin I LESS THAN 0.02 NG/ML Lipase 128 U/L Urine Color LIGHT-YELLOW Urine Turbidity CLEAR Urine pH 5.0 Urine Specific [place] 1.006 Urine Protein NEG mg/dL Urine Glucose (UA) NEG mg/dL Urine Ketones NEG mg/dL Urine Occult Blood NEG Urine Nitrite NEG Urine Bilirubin NEG Urine Urobilinogen LESS THAN 2.0 MG/DL Urine Leukocyte Esterase NEG Urine RBC LESS THAN 1 /hpf Urine WBC 1 /hpf Urine Squamous Epithelial Cells <1 /hpf Urine Renal Epithelial Cells <1 /hpf Microscopic Urinalysis Comment CULT NOT INDICATED MDM Medical Decision Making Medical Screen Exam Complete: Yes Emergency Medical Condition: Yes Medical Record Reviewed: Yes Differential Diagnosis Constipation, obstruction, gastroenteritis, ileus, mesenteric ischemia, peptic ulcer disease Narrative Course I spoke with Gladys, nurse practitioner who sent the patient here today. She reports that the patient did not have a CT of the abdomen and pelvis 2 days ago at [place] and in fact had a barium swallow which revealed no abnormalities. SHe did send the patient here today because the etiology of his crampy abdominal pain was unclear. On examination the patient has mild generalized tenderness to palpation of the abdomen without guarding. He is wholly nontoxic in appearance. Plan is for lab work, EKG, CT abdomen and pelvis. He will be given Zofran, Bentyl. The patient's lab work is wholly unremarkable. CT abdomen and pelvis reveals CONCLUSION: Extensive artifact from residual barium in the colon. I do not see an etiology for patient's periumbilical pain hiwever the exam is severely limited. The patient was given a copy of his CT report to follow-up with his primary care physician for outpatient gastroenterology referral if symptoms persist. The patient will be discharged with Colace and magnesium citrate for his constipation. Discussed signs and symptoms weren't returning to the emergency room. He is stable for discharge. Diagnosis Primary Impression: Abdominal pain Additional Impression: Constipation Additional Instructions: Medications prescribed for constipation. Stay well hydrated and well- nourished. Follow-up with primary care physician and return for any acutely new or worsening symptoms. Med/Other Pt SpecificInfo: Prescription(s) given Scripts Magnesium Citrate Liq (Magnesium Citrate Liq) 300 Ml Liq 300 ML PO ONCE, #1 BOTTLE 0 Refills Prov: Schuyler West MD 08/10/17 Docusate Sodium (Colace) 100 Mg Capsule 1 TAB PO TID for 10 Days Prov: Schuyler West MD 08/10/17 Disposition: 01 DISCHARGE HOME Condition: Stable Dany Packer Aug 10, 2017 11:15
[2017-08-10 11:43] LABS: AUTOMATED NEUTROPHIL # 5.1 TH/MM3 (1.8-7.7); BASOPHIL % 0.2 % (0.0-2.0); EOSINOPHIL # 0.1 TH/MM3 (0-0.4); EOSINOPHIL % 1.2 % (0.0-4.0); HEMATOCRIT 41.5 % (39.0-51.0); HEMOGLOBIN 13.9 GM/DL (13.0-17.0); LYMPHOCYTE # 1.4 TH/MM3 (1.0-4.8); MEAN CELL VOLUME 86.2 FL (80.0-100.0); MEAN CORPUSCULAR HEMOGLOBIN 28.9 PG (27.0-34.0); MEAN CORPUSCULAR HGB CONC 33.6 % (32.0-36.0); MEAN PLATELET VOLUME 7.6 FL (7.0-11.0); MONO % 9.4 % (0.0-8.0); MONOCYTE # 0.7 TH/MM3 (0-0.9); NEUT % 70.2 % (16.0-70.0); PLATELET COUNT 229 TH/MM3 (150-450); RED BLOOD COUNT 4.82 MIL/MM3 (4.50-5.90); RED CELL DISTRIBUTION WIDTH 13.1 % (11.6-17.2); WHITE BLOOD COUNT 7.2 TH/MM3 (4.0-11.0)
[2017-08-10] MEDS ORDERED: DICYCLOMINE HCL 20 MG/2 ML VIAL IM ONE (11:45)
[2017-08-10 11:52] LABS: PROTHROMBIN TIME - PATIENT 10.3 SEC (9.8-11.6)
[2017-08-10 11:59] LABS: ALBUMIN 3.8 GM/DL (3.4-5.0); ALT (GPT) 23 U/L (12-78); AST (GOT) 20 U/L (15-37); BICARBONATE 30.1 MEQ/L (21.0-32.0); BLOOD UREA NITROGEN 17 MG/DL (7-18); CALCIUM 8.6 MG/DL (8.5-10.1); CHLORIDE 106 MEQ/L (98-107); CREATININE 0.99 MG/DL (0.60-1.30); GLOMERULAR FILTRATION RATE 74 ML/MIN (>89); GLUCOSE,RANDOM 89 MG/DL (74-106); LIPASE 128 U/L (73-393); SODIUM (NA) 141 MEQ/L (136-145)
[2017-08-10 12:00] LABS: BILIRUBIN, URINE NEG (NEG); BLOOD, URINE NEG (NEG); GLUCOSE,URINE NEG (NEG); KETONE, URINE NEG (NEG); NITRITE,URINE NEG (NEG); RENAL EPITHELIAL CELLS <1 /hpf; SQUAMOUS EPITHELIAL CELL URINE <1 /hpf (0-5); URINE COLOR LIGHT-YELLOW (YELLW/STRAW); URINE LEUKOCYTE ESTERASE NEG (NEG)
[2017-08-10 12:03] LABS: ALKALINE PHOSPHATASE 111 U/L (45-117); TOTAL BILIRUBIN ADULT 0.7 MG/DL (0.2-1.0); TOTAL PROTEIN 7.5 GM/DL (6.4-8.2); TROPONIN I LESS THAN 0.02 NG/ML (0.02-0.05)
[2017-08-10] MEDS ORDERED: METOCLOPRAMIDE HCL 10 MG/2 ML VIAL IV PUSH ONE (13:15)
[2017-08-10] MEDS ORDERED: IOHEXOL 350 MG/ML 10 ML VIAL (for RAD DIAG) IVCONTRAST ONE (13:16)
--- NOTE | 2017-08-10 13:27 | RADRPT ---
EXAM DATE/TIME: 08/10/2017 12:55 [facility] COMPARISON: No previous studies available for comparison. INDICATIONS : Periumbical pain with vomiting. IV CONTRAST: 93 cc Omnipaque 350 (iohexol) IV ORAL CONTRAST: No oral contrast ingested. RADIATION DOSE: 10.74 CTDIvol (mGy) MEDICAL HISTORY : Renal insufficiency. Hypertension. SURGICAL HISTORY : Pacemaker. Cholecystectomy.TURP ENCOUNTER: Initial ACUITY: 1 day PAIN SCALE: 7/10 LOCATION: Bilateral upper quadrant TECHNIQUE: Volumetric scanning of the abdomen and pelvis was performed. Using automated exposure control and ad justment of the mA and/or kV according to patient size, radiation dose was kept as low as reasonably achievable to obtain optimal diagnostic quality images. DICOM format image data is available electro nically for review and comparison. FINDINGS: Extensive artifact is present from barium in the colon. The lung base clear. The liver, spleen pancreas and adrenals are unremarkable. Extensive artifact obscures kidneys and re troperitoneum. In the pelvis extensive artifact from barium is present in the pelvis. There is no free fluid or free air. Degenerative changes are present in most of the lumbar spine. CONCLUSION: Extensive artifact from residual barium in the colon. I do not see an etiology for p manny's periumbilical pain hiwever the exam is severely limited. Darron Stevens MD FACR on August 10, 2017 at 13:23 Board Certified Radiologist. This report was verified electronically.
[2017-08-10] MEDS ORDERED: COLA100C5 PO (13:41)
[2017-08-10] MEDS ORDERED: MAGNSOL2 PO (13:41)
--- NOTE | 2017-08-10 21:01 | EKG ---
Date Performed: 08/10/2017 Time Performed: 11:28:18 PTAGE: 76 years EKG: ELECTRONIC ATRIAL PACEMAKER ABNORMAL RHYTHM ECG PREVIOUS TRACING : 02/13/2017 19.44 Compared to prior tracing no significant change DOCTOR: John Feliz Interpretating Date/Time 08/10/2017 21:00:51
== END 2017-08-10 15:00 | disposition home or self-care (01) ==
LOC: NEPE 10:34
DX: R10.33 Periumbilical pain (principal); K59.00 Constipation, unspecified; R42 Dizziness and giddiness; R94.31 Abnormal electrocardiogram [ECG] [EKG]; R11.0 Nausea; J44.9 Chronic obstructive pulmonary disease, unspecified; I10 Essential (primary) hypertension; Z79.01 Long term (current) use of anticoagulants
CPT/HCPCS: 74177; 80053; 81001; 82550; 83605; 83690; 84484; 85025; 85610; 85730; 93005; 96374; 99285; J0500; J2405; J2765; Q9967